=== PATIENT | male | born 1995 | race African-American/Black ===

== ENCOUNTER 2024-09-09 13:26 | Emergency (ER) | payer MEDICAID, SELFPAY ==
--- NOTE | 2024-09-09 13:49 | PC.NURSE ---
Pt called mult times for triage, states he needs more time he is currently on the phone talking.
[2024-09-09 14:00] VITALS: BP 144/66; PULSE 88; RESP 19; TEMP 37.1; O2SAT 100
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
--- OUTSIDE RECORDS SUMMARY | 2024-09-09 15:51 | XMS_ITS | Patient Health Summary ---
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 The craniocervical junction is normal. The intervertebral discs appear normal. No central canal stenosis is seen. The facets appear normal. The uncovertebral joints appear normal. No neural foraminal stenosis isseen. No soft tissue abnormality is identified. Thoracic spine: Mild dextrocurvature of the thoracic spine. The alignment is otherwise maintained. Vertebral bodies are normal in height without evidence ofacute fracture. The intervertebral discs appear normal. No central canalstenosis is seen. The facets appear normal. No neural foraminal stenosis isseen. No soft tissue abnormality is identified. Lumbar spine: Shallow levocurvature of the lumbar spine. Minimal retrolisthesis of L5on S1. The alignment is otherwise maintained. Vertebral bodies are normalin height without evidence of acute fracture. There is diffuse disc bulgeat multiple levels. No significant central canal stenosis is seen. Thereare varying degrees of mild facet osteoarthritis. Mild neural foraminal stenosis is seen. No soft tissue abnormality is identified. IMPRESSION: 1.No acute intracranial hemorrhage, midline shift, or significant mass effect. 2.Acute moderately displaced right and mildly displaced left nasal bone fracture. 3.Acute fracture of the bony nasal septum with leftward deviation of the bony nasal septum. 4.Slight soft tissue swelling over the nose and left periorbital region. 5.No evidence of acute fracture in the cervical, thoracic, or lumbarspine. 6.2. The concurrent, dedicated body report for findings in the chest, abdomen, and pelvis. > Dictated by Tyler Ortega DO ([employer]el Clerk), 09/04/2024 7:09 PM. ICyndee MD have personally reviewed and interpretedthis examination/study. > Interpreting Provider: Cyndee Cota MD on 09/04/2024 9:09 PM Kimberly Dash MD CT ORDERABLES * CT CERVICAL SPINE WO CONTRAST - C-Spine Trauma, Spine fracture (09/04/2024 6:56 PM [facility]) Anatomical Region Laterality Modality Spine Computed Tomogra phy 09/04/2024 7:08 PM [facility] Impressions 09/04/2024 9:09 PM [facility] IMPRESSION: 1.No acute intracranial hemorrhage, midline shift, or significant mass effect. 2.Acute moderately displaced right and mildly displaced left nasal bone fracture. 3.Acute fracture of the bony nasal septum with leftward deviation of the bony nasal septum. 4.Slight soft tissue swelling over the nose and left periorbital region. 5.No evidence of acute fracture in the cervical, thoracic, or lumbar spine. 6.2. The concurrent, dedicated body report for findings in the chest, abdomen, and pelvis. > Dictated by Tyler Ortega DO ([employer]el Clerk), 09/04/2024 7:09 PM. ICyndee MD have personally reviewed and interpreted this examination/study. > Interpreting Provider: Cyndee Cota MD on 09/04/2024 9:09 PM Narrative 09/04/2024 9:09 PM [facility] PROCEDURE: CT HEAD WO CONTRAST, CT THORACIC SPINE WO CONTRAST, CT LUMBAR SPINE WO CONTRAST, CT FACIAL BONES WO CONTRAST, CT CERVICAL SPINE WO CONTRAST, DATE/TIME OF EXAM: 09/04/2024 6:57 PM, LOCATION [facility] INDICATION: Trauma EXAMINATION: 1. Computed tomography (CT) of the head without contrast 2. CT of the maxillofacial bones, orbits, and paranasal sinuses without contrast 3. CT of the cervical spine without contrast 4. CT of the thoracic spine without contrast 5. CT of the lumbar spine without contrast TECHNIQUE: CT of the head, cervical spine, and maxillofacial bones, orbits, and paranasal sinuses was performed without contrast according to standard protocol. Reformatted axial, sagittal, and coronal images of the thoracic and lumbar spine were obtained by the technologist from a concurrently performed body CT and sent to the workstation for review. CT dose reduction technique was used, including Automated Exposure Control. COMPARISON: No prior study is available for comparison at the time of this dictation. FINDINGS: Head: No acute intra- or extra-axial fluid collections are identified. The ventricles are of normal size, shape, and morphology. The basilar cisterns are patent. No mass effect or midline shift is seen. The ball-white matter differentiation is normal. No acute calvarial fracture is identified. Maxillofacial: Acute moderately displaced right and mildly displaced left nasal bone fracture. There is overlying soft tissue swelling. Acute fracture of the bony nasal septum with leftward deviation of the bony nasal septum. The orbits appear normal. Nasal polyp versus mucous retention cysts in the left maxillary sinus. The paranasal sinuses are otherwise clear. The hard palate, mandible, and temporomandibular joints appear normal. 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 The mastoid air cells are clear. Slight soft tissue swelling over the left periorbital region. Cervical spine: There is slight straightening of the normal cervical lordotic curvature. Vertebral bodies are normal in height without evidence of acute fracture. The craniocervical junction is normal. The intervertebral discs appear normal. No central canal stenosis is seen. The facets appear normal. The uncovertebral joints appear normal. No neural foraminal stenosis is seen. No soft tissue abnormality is identified. Thoracic spine: Mild dextrocurvature of the thoracic spine. The alignment is otherwise maintained. Vertebral bodies are normal in height without evidence of acute fracture. The intervertebral discs appear normal. No central canal stenosis is seen. The facets appear normal. No neural foraminal stenosis is seen. No soft tissue abnormality is identified. Lumbar spine: Shallow levocurvature of the lumbar spine. Minimal retrolisthesis of L5 on S1. The alignment is otherwise maintained. Vertebral bodies are normal in height without evidence of acute fracture. There is diffuse disc bulge at multiple levels. No significant central canal stenosis is seen. There are varying degrees of mild facet osteoarthritis. Mild neural foraminal stenosis is seen. No soft tissue abnormality is identified. Procedure Note Cyndee Cota MD - 09/04/2024 PROCEDURE: CT HEAD WO CONTRAST, CT THORACIC SPINE WO CONTRAST, CTLUMBAR SPINE WO CONTRAST, CT FACIAL BONES WO CONTRAST, CT CERVICAL SPINE WO CONTRAST, DATE/TIME OF EXAM: 09/04/2024 6:57 PM, LOCATION [facility] INDICATION: Trauma EXAMINATION: 1. Computed tomography (CT) of the head without contrast 2. CT of the maxillofacial bones, orbits, and paranasal sinuses without contrast 3. CT of the cervical spine without contrast 4. CT of the thoracic spine without contrast 5. CT of the lumbar spine without contrast TECHNIQUE: CT of the head, cervical spine, and maxillofacial bones,orbits, and paranasal sinuses was performed without contrast according tostandard protocol. Reformatted axial, sagittal, and coronal images of thethoracic and lumbar spine were obtained by the technologist from a concurrently performed body CT and sent to the workstation for review. CT dosereduction technique was used, including Automated Exposure Control. COMPARISON: No prior study is available for comparison at the time ofthis dictation. FINDINGS: Head: No acute intra- or extra-axial fluid collections are identified. The ventricles are of normal size, shape, and morphology. The basilarcisterns are patent. No mass effect or midline shift is seen. The ball-whitematter differentiation is normal. No acute calvarial fracture is identified. Maxillofacial: Acute moderately displaced right and mildly displaced left nasal bone fracture. There is overlying soft tissue swelling. Acute fracture of the bony nasal septum with leftward deviation of the bony nasal septum. The orbits appear normal. Nasal polyp versus mucous retention cysts in theleft maxillary sinus. The paranasal sinuses are otherwise clear. 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 The mastoid air cells are clear. Slight soft tissueswelling over the left periorbital region. Cervical spine: There is slight straightening of the normal cervical lordotic curvature. Vertebral bodies are normal in height without evidence of acutefracture. The craniocervical junction is normal. The intervertebral discs appear normal. No central canal stenosis is seen. The facets appear normal. The uncovertebral joints appear normal. No neural foraminal stenosis isseen. No soft tissue abnormality is identified. Thoracic spine: Mild dextrocurvature of the thoracic spine. The alignment is otherwise maintained. Vertebral bodies are normal in height without evidence ofacute fracture. The intervertebral discs appear normal. No central canalstenosis is seen. The facets appear normal. No neural foraminal stenosis isseen. No soft tissue abnormality is identified. Lumbar spine: Shallow levocurvature of the lumbar spine. Minimal retrolisthesis of L5on S1. The alignment is otherwise maintained. Vertebral bodies are normalin height without evidence of acute fracture. There is diffuse disc bulgeat multiple levels. No significant central canal stenosis is seen. Thereare varying degrees of mild facet osteoarthritis. Mild neural foraminal stenosis is seen. No soft tissue abnormality is identified. IMPRESSION: 1.No acute intracranial hemorrhage, midline shift, or significant mass effect. 2.Acute moderately displaced right and mildly displaced left nasal bone fracture. 3.Acute fracture of the bony nasal septum with leftward deviation of the bony nasal septum. 4.Slight soft tissue swelling over the nose and left periorbital region. 5.No evidence of acute fracture in the cervical, thoracic, or lumbarspine. 6.2. The concurrent, dedicated body report for findings in the chest, abdomen, and pelvis. > Dictated by Tyler Ortega DO ([employer]el Clerk), 09/04/2024 7:09 PM. Cyndee Arriola MD have personally reviewed and interpretedthis examination/study. > Interpreting Provider: Cyndee Cota MD on 09/04/2024 9:09 PM Kimberly Dash MD CT ORDERABLES * CT FACIAL BONES WO CONTRAST - Facial trauma, fx suspected, blunt (09/04/2024 6:56 PM [facility]) Anatomical Region Laterality Modality Head Computed Tomogra phy 09/04/2024 7:08 PM [facility] Impressions 09/04/2024 9:09 PM [facility] IMPRESSION: 1.No acute intracranial hemorrhage, midline shift, or significant mass effect. 2.Acute moderately displaced right and mildly displaced left nasal bone fracture. 3.Acute fracture of the bony nasal septum with leftward deviation of the bony nasal septum. 4.Slight soft tissue swelling over the nose and left periorbital region. 5.No evidence of acute fracture in the cervical, thoracic, or lumbar spine. 6.2. The concurrent, dedicated body report for findings in the chest, abdomen, and pelvis. > Dictated by Tyler Ortega DO ([employer]el Clerk), 09/04/2024 7:09 PM. Cyndee Arriola MD have personally reviewed and interpreted this examination/study. > Interpreting Provider: Cyndee Cota MD on 09/04/2024 9:09 PM Narrative 09/04/2024 9:09 PM [facility] PROCEDURE: CT HEAD WO CONTRAST, CT THORACIC SPINE WO CONTRAST, CT LUMBAR SPINE WO CONTRAST, CT FACIAL BONES WO CONTRAST, CT CERVICAL SPINE WO CONTRAST, DATE/TIME OF EXAM: 09/04/2024 6:57 PM, LOCATION [facility] INDICATION: Trauma EXAMINATION: 1. Computed tomography (CT) of the head without contrast 2. CT of the maxillofacial bones, orbits, and paranasal sinuses without contrast 3. CT of the cervical spine without contrast 4. CT of the thoracic spine without contrast 5. CT of the lumbar spine without contrast TECHNIQUE: CT of the head, cervical spine, and maxillofacial bones, orbits, and paranasal sinuses was performed without contrast according to standard protocol. Reformatted axial, sagittal, and coronal images of the thoracic and lumbar spine were obtained by the technologist from a concurrently performed body CT and sent to the workstation for review. CT dose reduction technique was used, including Automated Exposure Control. COMPARISON: No prior study is available for comparison at the time of this dictation. FINDINGS: Head: No acute intra- or extra-axial fluid collections are identified. The ventricles are of normal size, shape, and morphology. The basilar cisterns are patent. No mass effect or midline shift is seen. The ball-white matter differentiation is normal. No acute calvarial fracture is identified. Maxillofacial: Acute moderately displaced right and mildly displaced left nasal bone fracture. There is overlying soft tissue swelling. Acute fracture of the bony nasal septum with leftward deviation of the bony nasal septum. The orbits appear normal. Nasal polyp versus mucous retention cysts in the left maxillary sinus. The paranasal sinuses are otherwise clear. The hard palate, mandible, and temporomandibular joints appear normal. 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 The mastoid air cells are clear. Slight soft tissue swelling over the left periorbital region. Cervical spine: There is slight straightening of the normal cervical lordotic curvature. Vertebral bodies are normal in height without evidence of acute fracture. The craniocervical junction is normal. The intervertebral discs appear normal. No central canal stenosis is seen. The facets appear normal. The uncovertebral joints appear normal. No neural foraminal stenosis is seen. No soft tissue abnormality is identified. Thoracic spine: Mild dextrocurvature of the thoracic spine. The alignment is otherwise maintained. Vertebral bodies are normal in height without evidence of acute fracture. The intervertebral discs appear normal. No central canal stenosis is seen. The facets appear normal. No neural foraminal stenosis is seen. No soft tissue abnormality is identified. Lumbar spine: Shallow levocurvature of the lumbar spine. Minimal retrolisthesis of L5 on S1. The alignment is otherwise maintained. Vertebral bodies are normal in height without evidence of acute fracture. There is diffuse disc bulge at multiple levels. No significant central canal stenosis is seen. There are varying degrees of mild facet osteoarthritis. Mild neural foraminal stenosis is seen. No soft tissue abnormality is identified. Procedure Note Cyndee Cota MD - 09/04/2024 PROCEDURE: CT HEAD WO CONTRAST, CT THORACIC SPINE WO CONTRAST, CTLUMBAR SPINE WO CONTRAST, CT FACIAL BONES WO CONTRAST, CT CERVICAL SPINE WO CONTRAST, DATE/TIME OF EXAM: 09/04/2024 6:57 PM, LOCATION [facility] INDICATION: Trauma EXAMINATION: 1. Computed tomography (CT) of the head without contrast 2. CT of the maxillofacial bones, orbits, and paranasal sinuses without contrast 3. CT of the cervical spine without contrast 4. CT of the thoracic spine without contrast 5. CT of the lumbar spine without contrast TECHNIQUE: CT of the head, cervical spine, and maxillofacial bones,orbits, and paranasal sinuses was performed without contrast according tostandard protocol. Reformatted axial, sagittal, and coronal images of thethoracic and lumbar spine were obtained by the technologist from a concurrently performed body CT and sent to the workstation for review. CT dosereduction technique was used, including Automated Exposure Control. COMPARISON: No prior study is available for comparison at the time ofthis dictation. FINDINGS: Head: No acute intra- or extra-axial fluid collections are identified. The ventricles are of normal size, shape, and morphology. The basilarcisterns are patent. No mass effect or midline shift is seen. The ball-whitematter differentiation is normal. No acute calvarial fracture is identified. Maxillofacial: Acute moderately displaced right and mildly displaced left nasal bone fracture. There is overlying soft tissue swelling. Acute fracture of the bony nasal septum with leftward deviation of the bony nasal septum. The orbits appear normal. Nasal polyp versus mucous retention cysts in theleft maxillary sinus. The paranasal sinuses are otherwise clear. 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 The mastoid air cells are clear. Slight soft tissueswelling over the left periorbital region. Cervical spine: There is slight straightening of the normal cervical lordotic curvature. Vertebral bodies are normal in height without evidence of acutefracture. The craniocervical junction is normal. The intervertebral discs appear normal. No central canal stenosis is seen. The facets appear normal. The uncovertebral joints appear normal. No neural foraminal stenosis isseen. No soft tissue abnormality is identified. Thoracic spine: Mild dextrocurvature of the thoracic spine. The alignment is otherwise maintained. Vertebral bodies are normal in height without evidence ofacute fracture. The intervertebral discs appear normal. No central canalstenosis is seen. The facets appear normal. No neural foraminal stenosis isseen. No soft tissue abnormality is identified. Lumbar spine: Shallow levocurvature of the lumbar spine. Minimal retrolisthesis of L5on S1. The alignment is otherwise maintained. Vertebral bodies are normalin height without evidence of acute fracture. There is diffuse disc bulgeat multiple levels. No significant central canal stenosis is seen. Thereare varying degrees of mild facet osteoarthritis. Mild neural foraminal stenosis is seen. No soft tissue abnormality is identified. IMPRESSION: 1.No acute intracranial hemorrhage, midline shift, or significant mass effect. 2.Acute moderately displaced right and mildly displaced left nasal bone fracture. 3.Acute fracture of the bony nasal septum with leftward deviation of the bony nasal septum. 4.Slight soft tissue swelling over the nose and left periorbital region. 5.No evidence of acute fracture in the cervical, thoracic, or lumbarspine. 6.2. The concurrent, dedicated body report for findings in the chest, abdomen, and pelvis. > Dictated by Tyler Ortega DO ([employer]el Clerk), 09/04/2024 7:09 PM. ICyndee MD have personally reviewed and interpretedthis examination/study. > Interpreting Provider: Cyndee Cota MD on 09/04/2024 9:09 PM Kimberly Dash MD CT ORDERABLES * CT HEAD WO CONTRAST - Head Trauma, CSF leak, mental status changes (09/04/2024 6:56 PM [employer]) Anatomical Region Laterality Modality Head Computed Tomogra phy 09/04/2024 7:08 PM [facility] [employer] Impressions 09/04/2024 9:09 PM [employer] [employer] IMPRESSION: 1.No acute intracranial hemorrhage, midline shift, or significant mass effect. 2.Acute moderately displaced right and mildly displaced left nasal bone fracture. 3.Acute fracture of the bony nasal septum with leftward deviation of the bony nasal septum. 4.Slight soft tissue swelling over the nose and left periorbital region. 5.No evidence of acute fracture in the cervical, thoracic, or lumbar spine. 6.2. The concurrent, dedicated body report for findings in the chest, abdomen, and pelvis. > Dictated by Tyler Ortega DO (Creel Clerk), 09/04/2024 7:09 PM. ICyndee MD have personally reviewed and interpreted this examination/study. > Interpreting Provider: Cyndee Cota MD on 09/04/2024 9:09 PM Narrative 09/04/2024 9:09 PM [facility] [employer] PROCEDURE: CT HEAD WO CONTRAST, CT THORACIC SPINE WO CONTRAST, CT LUMBAR SPINE WO CONTRAST, CT FACIAL BONES WO CONTRAST, CT CERVICAL SPINE WO CONTRAST, DATE/TIME OF EXAM: 09/04/2024 6:57 PM, LOCATION [facility] INDICATION: Trauma EXAMINATION: 1. Computed tomography (CT) of the head without contrast 2. CT of the maxillofacial bones, orbits, and paranasal sinuses without contrast 3. CT of the cervical spine without contrast 4. CT of the thoracic spine without contrast 5. CT of the lumbar spine without contrast TECHNIQUE: CT of the head, cervical spine, and maxillofacial bones, orbits, and paranasal sinuses was performed without contrast according to standard protocol. Reformatted axial, sagittal, and coronal images of the thoracic and lumbar spine were obtained by the technologist from a concurrently performed body CT and sent to the workstation for review. CT dose reduction technique was used, including Automated Exposure Control. COMPARISON: No prior study is available for comparison at the time of this dictation. FINDINGS: Head: No acute intra- or extra-axial fluid collections are identified. The ventricles are of normal size, shape, and morphology. The basilar cisterns are patent. No mass effect or midline shift is seen. The ball-white matter differentiation is normal. No acute calvarial fracture is identified. Maxillofacial: Acute moderately displaced right and mildly displaced left nasal bone fracture. There is overlying soft tissue swelling. Acute fracture of the bony nasal septum with leftward deviation of the bony nasal septum. The orbits appear normal. Nasal polyp versus mucous retention cysts in the left maxillary sinus. The paranasal sinuses are otherwise clear. The hard palate, mandible, and temporomandibular joints appear normal. 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 The mastoid air cells are clear. Slight soft tissue swelling over the left periorbital region. Cervical spine: There is slight straightening of the normal cervical lordotic curvature. Vertebral bodies are normal in height without evidence of acute fracture. The craniocervical junction is normal. The intervertebral discs appear normal. No central canal stenosis is seen. The facets appear normal. The uncovertebral joints appear normal. No neural foraminal stenosis is seen. No soft tissue abnormality is identified. Thoracic spine: Mild dextrocurvature of the thoracic spine. The alignment is otherwise maintained. Vertebral bodies are normal in height without evidence of acute fracture. The intervertebral discs appear normal. No central canal stenosis is seen. The facets appear normal. No neural foraminal stenosis is seen. No soft tissue abnormality is identified. Lumbar spine: Shallow levocurvature of the lumbar spine. Minimal retrolisthesis of L5 on S1. The alignment is otherwise maintained. Vertebral bodies are normal in height without evidence of acute fracture. There is diffuse disc bulge at multiple levels. No significant central canal stenosis is seen. There are varying degrees of mild facet osteoarthritis. Mild neural foraminal stenosis is seen. No soft tissue abnormality is identified. Procedure Note Cyndee Cota MD - 09/04/2024 PROCEDURE: CT HEAD WO CONTRAST, CT THORACIC SPINE WO CONTRAST, CTLUMBAR SPINE WO CONTRAST, CT FACIAL BONES WO CONTRAST, CT CERVICAL SPINE WO CONTRAST, DATE/TIME OF EXAM: 09/04/2024 6:57 PM, LOCATION [facility] INDICATION: Trauma EXAMINATION: 1. Computed tomography (CT) of the head without contrast 2. CT of the maxillofacial bones, orbits, and paranasal sinuses without contrast 3. CT of the cervical spine without contrast 4. CT of the thoracic spine without contrast 5. CT of the lumbar spine without contrast TECHNIQUE: CT of the head, cervical spine, and maxillofacial bones,orbits, and paranasal sinuses was performed without contrast according tostandard protocol. Reformatted axial, sagittal, and coronal images of thethoracic and lumbar spine were obtained by the technologist from a concurrently performed body CT and sent to the workstation for review. CT dosereduction technique was used, including Automated Exposure Control. COMPARISON: No prior study is available for comparison at the time ofthis dictation. FINDINGS: Head: No acute intra- or extra-axial fluid collections are identified. The ventricles are of normal size, shape, and morphology. The basilarcisterns are patent. No mass effect or midline shift is seen. The ball-whitematter differentiation is normal. No acute calvarial fracture is identified. Maxillofacial: Acute moderately displaced right and mildly displaced left nasal bone fracture. There is overlying soft tissue swelling. Acute fracture of the bony nasal septum with leftward deviation of the bony nasal septum. The orbits appear normal. Nasal polyp versus mucous retention cysts in theleft maxillary sinus. The paranasal sinuses are otherwise clear. 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
--- OUTSIDE RECORDS SUMMARY | 2024-09-09 15:51 | XMS_ITS | Continuity of Care Document ---
Author Organization [facility] Address [address] [place] [phone] Phone Care Team Providers Care Harmonica Maker Name Role Phone Maria G Cooley OD Unavailable Unavailable Allergies, Adverse Reactions, Alerts Substance Reaction Status Criticality No Known Allergies Active No Inform ation Medications Medication Instructions Dosage Effective Dates (start - stop) Status Comments fluorometholone 0.1 % eye drops,suspension instill 1 drop by ophthalmic route 4 times every day into both eyes - Active Procedures Procedure Date EYE EXAM, NEW PATIENT COMP Advance Directives Directive Yes / No Effective Date File Name No Information Encounters Encounter Description Practice Location Reason(s) For Visit Diagnoses Date Provider Providers Copied on Encounter [facility], [address] [place] [address], [id number], [place] tel:[phone] Urgent Care Red eyes (chief complaint) Viral conjunctivitis Yasir Maria G. [address] [place] [address], [id number] , [place]. tel:[phone] Family History Family Member Type Diagnosis Age At Onset Father Problem (finding) No history of Diabetes mellitus Mother Problem (finding) No history of Diabetes mellitus Mother Problem (finding) No history of Glaucoma Father Problem (finding) No history of Glaucoma Payers Payer name Insurance type Covered constitution party ID Authoriza tion(s) No Information Social History Type Description Quantity Date Captured Comments Alcohol Use Details Unknown Caffeine Use Details Unknown Tobacco Use Status Smoking Status Current every day smoker Non-Smoking Tobacco Use Details : No Details Available : No Details Available Sex Male Chief Complaint And Reason For Visit From encounter dated '03/31/2015 12:00'. Red eyes (chief complaint). Description: The 19 year 4 month old male presents with red eyes OS>OD. Red eye began in right eye 3 wks ago. Symptoms are resolving. Red eye began in left eye 3 days ago. Vision is stll blurry in right eye. Light sensitivity, irritation in left eye. Tearing OS>OD. Patient reports having a cold 3-4 wks ago. Pt reports using vision in bid to tid OU. Pt reports using an unknown ointment before bed for 1-2 wks. Reason For Referral Reason For Referral No Information History Of Present Illness Encounter Date Complaint History Of Prese nt Illness Red eyes The 19 year 4 mo nth old male presents with red eyes OS>OD. Red eye began in right eye 3 wks ago. Symptoms are resolving. Red eye began in left eye 3 days ago. Vision is stll blurry in right eye. Light sensitivity, irritation in left eye. Tearing OS>OD. Patient reports having a cold 3-4 wks ago. Pt reports using vision in bid to tid OU. Pt reports using an unknown ointment before bed for 1-2 wks. Functional Status Date Functional Assessmen t No Information Instructions Date Instruction Additional Infor jael Impression/Plan - St art FML qid OU and AT q2hrs OU. F/U with DFE in 1 wk with Ittner/Labrum. Sample of preservative free Refresh was given to patient. Pt was educated about the condition and was informed that although FML will relieve symptoms, it is not a cure and he may be contagious for 10-14 days. He was educated to use proper hygiene including frequent hand washing. Pt advised to RTC immediately if symptoms worsen. Patient was given business card with 24 hour urgent care number and instructed to call if any change in sns/sxs (increase in pain, redness, photophobia, discharge, decrease in vision) Related to Viral conjunctivitis Follow up - Return in 1 week Rel ated to Other viral conjunctivitis Assessments Type Assessment Date assessment Viral conjunctivitis impression Viral conjunctivitis : 077.99 OS>OD -resolving in right eye, onset was ~03/10/15 -onset in left eye was ~03/28/15 Patient Care Teams Name Effective Dates (start - stop) Status Members No Information
--- OUTSIDE RECORDS SUMMARY | 2024-09-09 15:51 | XMS_ITS | Referral Summary ---
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 Screen Urine Negative Negative : < 200 ng/mL 09/04/2024 5:13 PM [facility] Benzodiazepine Screen Urine Negative Negative : < 200 ng/mL 09/04/2024 5:13 PM [facility] Opiates Urine Negative Negative : < 300 ng/mL 09/04/2024 5:13 PM [facility] Cocaine Metabolites Urine Negative Negative : < 300 ng/mL 09/04/2024 5:13 PM [facility] Phencyclidine Screen Urine Negative Negative : < 25 ng/ml 09/04/2024 5:13 PM [facility] Cannabinoids Screen Urine Positive(A) Negative : <50 ng/mL 09/04/2024 5:13 PM [facility] Comment:Positive urine canna binoids (THC) screening results should be confirmed by another generally accepted non-immunological method such as gas chromatography or mass spectrometry. Methadone Screen Urine Negative Negative : < 300 ng/mL 09/04/2024 5:13 PM [facility] Fentanyl Screen Urine Negative Negative : <1.5 ng/mL 09/04/2024 5:13 PM [facility] Urine URINE / Unknown Collection / Unknown 09/04/2024 4:49 PM ENTREPRENEURIAL FINANCE PROFESSOR 09/04/2024 4:52 PM [facility] - 09/04/2024 5:13 PM ENTREPRENEURIAL FINANCE PROFESSOR The Urine Toxicology Screening Panel does not screen for Propoxyphene, Meprobamate, Carisoprodol, Trazodone, [id number] medications and/or volatiles (Acetone, Isopropanol, Methanol or Ethylene Glycol). Ethanol, Salicylate, Acetaminophen, Tricyclic Antidepressants and several therapeutic drugs may be individually assayed in serum or plasma specimen. Toxicology testing by the [facility] is an aid to medical diagnosis and treatment of patients. No documented chain of custody was maintained. Results are intended to be used for clinical purposes only. Kimberly Dash MD LAB - URINE CHEMISTR Y ORDERABLES Performing Organization Address City/[facility]/ZIP Co de Phone Number [facility] [address] [place] [address], [facility] [phone] * PT-INR [facility] (09/04/2024 4:48 PM ENTREPRENEURIAL FINANCE PROFESSOR) Pathologist [facility] PT 14.5 12.1 - 14.8 Seconds 09/04/2024 5:21 PM ENTREPRENEURIAL FINANCE PROFESSOR [facility] INR 1.2 See Comment 09/04/2024 5:21 PM ENTREPRENEURIAL FINANCE PROFESSOR [facility] Comment:The suggested therap eutic range for standard coumadin (warfarin) therapy is an INR of 2.0-3.0. For high-risk patients (Mechanical Mitral Valve Prosthesis, etc.), the suggested prophylactic therapeutic range is an INR of 2.5-3.5. Blood BLOOD SPECIMEN / Unknown Venipuncture / Unknown 09/04/2024 4:48 PM ENTREPRENEURIAL FINANCE PROFESSOR 09/04/2024 4:52 PM ENTREPRENEURIAL FINANCE PROFESSOR Kimberly Dash MD LAB - COAGULATION OR DERABLES Performing Organization Address [facility]/ZIP Co de Phone Number [phone] [place] [address], [facility] [phone] * TYPE + SCREEN PANEL (09/04/2024 4:48 PM ENTREPRENEURIAL FINANCE PROFESSOR) Antibody Screen NEG 5:51 PM ENTREPRENEURIAL FINANCE PROFESSOR [facility] BLOOD BANK LAB ABO Rh A POS 09/04/2024 5:51 PM ENTREPRENEURIAL FINANCE PROFESSOR [facility] BLOOD BANK LAB Blood Bank BLOOD SPECIMEN / Unknown Venipuncture / Unknown 09/04/2024 4:48 PM ENTREPRENEURIAL FINANCE PROFESSOR 09/04/2024 5:14 PM ENTREPRENEURIAL FINANCE PROFESSOR Kimberly Dash MD LAB - BLOOD BANK ORD ERABLES [facility] BLOOD BANK LAB [address] [place] [address], [facility] [phone] * (ABNORMAL) CBC W AUTO DIFFERENTIAL (09/04/2024 4:48 PM ENTREPRENEURIAL FINANCE PROFESSOR) WBC 10.0 4.0 - 10.7 x10E9/L 09/04/2024 5:18 PM [facility] RBC Count 3.78(L) 4.30 - 5.80 x10E12/L 09/04/2024 5:18 PM [facility] Hemoglobin 7.4(L) 13.3 - 17.5 g/dL 09/04/2024 5:18 PM [facility] Hematocrit 25.5(L) 38.7 - 51.1 % 09/04/2024 5:18 PM [facility] MCV 67.5(L) 80.0 - 98.0 fL 09/04/2024 5:18 PM [facility] MCH 19.6(L) 26.7 - 33.6 pg 09/04/2024 5:18 PM [facility] MCHC 29.0(L) 31.7 - 36.3 g/dL 09/04/2024 5:18 PM [facility] RDW-CV 16.7(H) 11.3 - 14.8 % 09/04/2024 5:18 PM [facility] Platelet Count 610(H) 150 - 420 x10E9/L 09/04/2024 5:18 PM [facility] MPV 9.5 7.8 - 11.4 fL 09/04/2024 5:18 PM [facility] Neutrophil % 71.4 41.0 - 74.0 % 09/04/2024 5:18 PM [facility] Lymphocyte % 19.4 17.0 - 47.0 % 09/04/2024 5:18 PM [facility] Monocyte % 6.1 3.0 - 11.0 % 09/04/2024 5:18 PM ENTREPRENEURIAL FINANCE PROFESSOR [facility] Eosinophil % 1.5 0.0 - 7.0 % 09/04/2024 5:18 PM [facility] Basophil % 1.2 0.0 - 1.6 % 09/04/2024 5:18 PM [facility] Immature Granulocytes % 0.4 0.0 - 1.0 % 09/04/2024 5:18 PM [facility] Neutrophil Absolute 7.12 1.60 - 7.50 x10E9/L 09/04/2024 5:18 PM [facility] Lymphocyte Absolute 1.94 1.00 - 4.40 x10E9/L 09/04/2024 5:18 PM [facility] Monocyte Absolute 0.61 0.15 - 1.00 x10E9/L 09/04/2024 5:18 PM [facility] Eosinophil Absolute 0.15 0.00 - 0.60 x10E9/L 09/04/2024 5:18 PM [facility] Basophil Absolute 0.12 0.00 - 0.13 x10E9/L 09/04/2024 5:18 PM [facility] Blood BLOOD SPECIMEN / Unknown Venipuncture / Unknown 09/04/2024 4:48 PM ENTREPRENEURIAL FINANCE PROFESSOR 09/04/2024 4:57 PM [facility] Kimberly Dash MD LAB - HEMATOLOGY ORD ERABLES [facility] [address] [place] [address], [facility] [phone] * (ABNORMAL) COMPREHENSIVE METABOLIC PANEL (09/04/2024 4:48 PM ENTREPRENEURIAL FINANCE PROFESSOR) BUN 14 7 - 26 mg/dL 09/04/2024 5:26 PM [facility] Creatinine 0.80 0.71 - 1.16 mg/dL 09/04/2024 5:26 PM [facility] Sodium 140 136 - 145 mmol/L 09/04/2024 5:26 PM [facility] Potassium 3.5 3.5 - 4.5 mmol/L 09/04/2024 5:26 PM [facility] Chloride 110(H) 98 - 107 mmol/L 09/04/2024 5:26 PM [facility] CO2 23 22 - 29 mmol/L 09/04/2024 5:26 PM [facility] Glucose 85 70 - 99 mg/dL 09/04/2024 5:26 PM [facility] Calcium 9.2 8.4 - 10.2 mg/dL 09/04/2024 5:26 PM [facility] Protein Total 7.5 6.0 - 8.3 g/dL 09/04/2024 5:26 PM [facility] Albumin 3.9 3.4 - 5.0 g/dL 09/04/2024 5:26 PM [facility] Bilirubin Total 0.3 0.2 - 1.2 mg/dL 09/04/2024 5:26 PM [facility] Alkaline Phosphatase 51 40 - 150 U/L 09/04/2024 5:26 PM [facility] ALT 16 5 - 55 U/L 09/04/2024 5:26 PM [facility] AST 34 5 - 34 U/L 09/04/2024 5:26 PM [facility] Anion Gap 7 6 - 16 09/04/2024 5:26 PM [facility] BUN/Creatinine Ratio 18 7 - 23 09/04/2024 5:26 PM [facility] Osmolality Calculated 290 275 - 295 mOsm/kg 09/04/2024 5:26 PM [facility] Albumin/Globulin Ratio 1.1 1.1 - 2.3 09/04/2024 5:26 PM [facility] eGFR by CKD-EPI >90 >=90 mL/min/1.7 3 m2 09/04/2024 5:26 PM [facility] Blood BLOOD SPECIMEN / Unknown Venipuncture / Unknown 09/04/2024 4:48 PM ENTREPRENEURIAL FINANCE PROFESSOR 09/04/2024 4:57 PM [facility] Kimberly Dash MD LAB - CHEMISTRY ORDE DANN [facility] Organization Address City/State/ZIP Co de Phone Number [facility] [address] [place] [address], [facility] [phone] * LIPASE BLOOD (09/04/2024 4:48 PM ENTREPRENEURIAL FINANCE PROFESSOR) Lipase 30 8 - 78 U/L 09/04/2024 5:26 PM [facility] Blood BLOOD SPECIMEN / Unknown Venipuncture / Unknown 09/04/2024 4:48 PM ENTREPRENEURIAL FINANCE PROFESSOR 09/04/2024 4:57 PM ENTREPRENEURIAL FINANCE PROFESSOR [facility] - 09/04/2024 5:26 PM ENTREPRENEURIAL FINANCE PROFESSOR Lipase results from the [employer] Alinity analyzer may not be comparable with other methodologies. Kimberly Dash MD LAB - CHEMISTRY JOHAN QUIGLEY Performing Organization Address [facility]/ZIP Co de Phone Number [address] [address], [facility] [phone] * ALCOHOL ETHYL BLOOD (09/04/2024 4:48 PM ENTREPRENEURIAL FINANCE PROFESSOR) Ethanol (mg/dL) <10 <10 mg/dL 5:26 PM [facility] Ethanol Calculated (g/dL) <0.010 <=0.010 g/dL 09/04/2024 5:26 PM [facility] Blood BLOOD SPECIMEN / Unknown Venipuncture / Unknown 09/04/2024 4:48 PM ENTREPRENEURIAL FINANCE PROFESSOR 09/04/2024 4:57 PM ENTREPRENEURIAL FINANCE PROFESSOR [facility] - 09/04/2024 5:26 PM ENTREPRENEURIAL FINANCE PROFESSOR Ethanol Interp <10: None Detected. Depression of PROBATION AGENT: >100 mg/dl Potentially Critical: >250 mg/dl Potentially [...] - CHEMISTRY JOHAN QUIGLEY Performing Organization Address City/[facility]/ZIP Co de Phone Number [facility] [address] [place] [phone], [place] [phone] from Last 3 Months Care Teams Insurance Account Executive Relationship Specialty Start Date End Date None, Physician PCP - General 09/04/24
--- OUTSIDE RECORDS SUMMARY | 2024-09-09 15:51 | XMS_ITS | Clinical Summary ---
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 Urine Negative Negative : < 300 ng/mL 09/04/2024 5:13 PM [facility] Phencyclidine Screen Urine Negative Negative : < 25 ng/ml 09/04/2024 5:13 PM [facility] Cannabinoids Screen Urine Positive(A) Negative : <50 ng/mL 09/04/2024 5:13 PM [facility] Comment:Positive urine canna binoids (THC) screening results should be confirmed by another generally accepted non-immunological method such as gas chromatography or mass spectrometry. Methadone Screen Urine Negative Negative : < 300 ng/mL 09/04/2024 5:13 PM [facility] Fentanyl Screen Urine Negative Negative : <1.5 ng/mL 09/04/2024 5:13 PM [facility] Urine URINE / Unknown Collection / Unknown 09/04/2024 4:49 PM [facility] 09/04/2024 4:52 PM [facility] - 09/04/2024 5:13 PM [facility] The Urine Toxicology Screening Panel does not screen for Propoxyphene, Meprobamate, Carisoprodol, Trazodone, ilmv-azc-nzefyys medications and/or volatiles (Acetone, Isopropanol, Methanol or Ethylene Glycol). Ethanol, Salicylate, Acetaminophen, Tricyclic Antidepressants and several therapeutic drugs may be individually assayed in serum or plasma specimen. Toxicology testing by the [facility] is an aid to medical diagnosis and treatment of patients. No documented chain of custody was maintained. Results are intended to be used for clinical purposes only. Kimberly Dash MD LAB - URINE CHEMISTR Y ORDERABLES Performing Organization Address City/State/[facility] Co de Phone Number [facility] [address] [place] [phone], [facility] [phone] * PT-INR [facility] (09/04/2024 4:48 PM [facility]) PT 14.5 12.1 - 14.8 Seconds 09/04/2024 5:21 PM [facility] INR 1.2 See Comment 09/04/2024 5:21 PM [facility] Comment:The suggested therap eutic range for standard coumadin (warfarin) therapy is an INR of 2.0-3.0. For high-risk patients (Mechanical Mitral Valve Prosthesis, etc.), the suggested prophylactic therapeutic range is an INR of 2.5-3.5. Blood BLOOD SPECIMEN / Unknown Venipuncture / Unknown 09/04/2024 4:48 PM PIPE STRESS ENGINEER 09/04/2024 4:52 PM PIPE STRESS ENGINEER Kimberly Dash MD LAB - COAGULATION OR DERABLES Performing Organization Address City/[facility] [address]/ZIP Co de Phone Number [facility] [address] [place] [phone], [facility] [phone] * TYPE + SCREEN PANEL (09/04/2024 4:48 PM PIPE STRESS ENGINEER) Pathologist [facility] Antibody Screen NEG 5:51 PM PIPE STRESS ENGINEER [facility] ABO Rh A POS 09/04/2024 5:51 PM PIPE STRESS ENGINEER [facility] Blood Bank BLOOD SPECIMEN / Unknown Venipuncture / Unknown 09/04/2024 4:48 PM PIPE STRESS ENGINEER 09/04/2024 5:14 PM PIPE STRESS ENGINEER Kimberly Dash MD LAB - BLOOD BANK ORD ERABLES Performing Organization Address City/[facility] [address]/ZIP Co de Phone Number [facility] [address] [place] [phone], [facility] [phone] * (ABNORMAL) CBC W AUTO DIFFERENTIAL (09/04/2024 4:48 PM PIPE STRESS ENGINEER) [facility] WBC 10.0 4.0 - 10.7 x10E9/L 09/04/2024 5:18 PM [facility] RBC Count 3.78(L) 4.30 - 5.80 x10E12/L 09/04/2024 5:18 PM [facility] Hemoglobin 7.4(L) 13.3 - 17.5 g/dL 09/04/2024 5:18 PM [facility] Hematocrit 25.5(L) 38.7 - 51.1 % 09/04/2024 5:18 PM [facility] MCV 67.5(L) 80.0 - 98.0 fL 09/04/2024 5:18 PM [facility] MCH 19.6(L) 26.7 - 33.6 pg 09/04/2024 5:18 PM [facility] MCHC 29.0(L) 31.7 - 36.3 g/dL 09/04/2024 5:18 PM [facility] RDW-CV 16.7(H) 11.3 - 14.8 % 09/04/2024 5:18 PM [facility] Platelet Count 610(H) 150 - 420 x10E9/L 09/04/2024 5:18 PM [facility] MPV 9.5 7.8 - 11.4 fL 09/04/2024 5:18 PM [facility] Neutrophil % 71.4 41.0 - 74.0 % 09/04/2024 5:18 PM [facility] Lymphocyte % 19.4 17.0 - 47.0 % 09/04/2024 5:18 PM [facility] Monocyte % 6.1 3.0 - 11.0 % 09/04/2024 5:18 PM [facility] Eosinophil % 1.5 0.0 - 7.0 % 09/04/2024 5:18 PM [facility] Basophil % 1.2 0.0 - 1.6 % 09/04/2024 5:18 PM [facility] Immature Granulocytes % 0.4 0.0 - 1.0 % 09/04/2024 5:18 PM [facility] Neutrophil Absolute 7.12 1.60 - 7.50 x10E9/L 09/04/2024 5:18 PM [facility] Lymphocyte Absolute 1.94 1.00 - 4.40 x10E9/L 09/04/2024 5:18 PM [facility] Monocyte Absolute 0.61 0.15 - 1.00 x10E9/L 09/04/2024 5:18 PM [facility] Eosinophil Absolute 0.15 0.00 - 0.60 x10E9/L 09/04/2024 5:18 PM [facility] Basophil Absolute 0.12 0.00 - 0.13 x10E9/L 09/04/2024 5:18 PM [facility] Blood BLOOD SPECIMEN / Unknown Venipuncture / Unknown 09/04/2024 4:48 PM PIPE STRESS ENGINEER 09/04/2024 4:57 PM PIPE STRESS ENGINEER Kimberly Dash MD LAB - HEMATOLOGY ORD ERABLES [facility] [address] [place] [address], [facility] [phone] * (ABNORMAL) COMPREHENSIVE METABOLIC PANEL (09/04/2024 4:48 PM PIPE STRESS ENGINEER) BUN 14 7 - 26 mg/dL 09/04/2024 5:26 PM [facility] Creatinine 0.80 0.71 - 1.16 mg/dL 09/04/2024 5:26 PM [facility] Sodium 140 136 - 145 mmol/L 09/04/2024 5:26 PM [facility] Potassium 3.5 3.5 - 4.5 mmol/L 09/04/2024 5:26 PM [facility] Chloride 110(H) 98 - 107 mmol/L 09/04/2024 5:26 PM [facility] CO2 23 22 - 29 mmol/L 09/04/2024 5:26 PM [facility] Glucose 85 70 - 99 mg/dL 09/04/2024 5:26 PM [facility] Calcium 9.2 8.4 - 10.2 mg/dL 09/04/2024 5:26 PM [facility] Protein Total 7.5 6.0 - 8.3 g/dL 09/04/2024 5:26 PM [facility] Albumin 3.9 3.4 - 5.0 g/dL 09/04/2024 5:26 PM [facility] Bilirubin Total 0.3 0.2 - 1.2 mg/dL 09/04/2024 5:26 PM [facility] Alkaline Phosphatase 51 40 - 150 U/L 09/04/2024 5:26 PM [facility] ALT 16 5 - 55 U/L 09/04/2024 5:26 PM [facility] AST 34 5 - 34 U/L 09/04/2024 5:26 PM [facility] Anion Gap 7 6 - 16 09/04/2024 5:26 PM [facility] BUN/Creatinine Ratio 18 7 - 23 09/04/2024 5:26 PM [facility] Osmolality Calculated 290 275 - 295 mOsm/kg 09/04/2024 5:26 PM [facility] Albumin/Globulin Ratio 1.1 1.1 - 2.3 09/04/2024 5:26 PM [facility] eGFR by CKD-EPI >90 >=90 mL/min/1.7 3 m2 09/04/2024 5:26 PM [facility] Blood BLOOD SPECIMEN / Unknown Venipuncture / Unknown 09/04/2024 4:48 PM PIPE STRESS ENGINEER 09/04/2024 4:57 PM PIPE STRESS ENGINEER Kimberly Dash MD LAB - CHEMISTRY JOHAN QUIGLEY Performing Organization Address City/[facility] [address]/ZIP Co de Phone Number [facility] [address] [place] [address], [place] [phone] * LIPASE BLOOD (09/04/2024 4:48 PM PIPE STRESS ENGINEER) Lipase 30 8 - 78 U/L 09/04/2024 5:26 PM [facility] Blood BLOOD SPECIMEN / Unknown Venipuncture / Unknown 09/04/2024 4:48 PM PIPE STRESS ENGINEER 09/04/2024 4:57 PM PIPE STRESS ENGINEER Narrative [facility] - 09/04/2024 5:26 PM PIPE STRESS ENGINEER Lipase results from the P[employer] Alinity analyzer may not be comparable with other methodologies. Kimberly Dash MD LAB - CHEMISTRY JOHAN QUIGLEY [facility] [address] [place] [address], [place] [phone] * ALCOHOL ETHYL BLOOD (09/04/2024 4:48 PM PIPE STRESS ENGINEER) Ethanol (mg/dL) <10 <10 mg/dL 5:26 PM [facility] Ethanol Calculated (g/dL) <0.010 <=0.010 g/dL 09/04/2024 5:26 PM [facility] Blood BLOOD SPECIMEN / Unknown Venipuncture / Unknown 09/04/2024 4:48 PM PIPE STRESS ENGINEER 09/04/2024 4:57 PM PIPE STRESS ENGINEER Narrative [facility] - 09/04/2024 5:26 PM PIPE STRESS ENGINEER Ethanol Interp <10: None Detected. Depression of [employer]: >100 mg/dl Potentially Critical: >250 mg/dl Potentially [...] Dash MD LAB - CHEMISTRY JOHAN QUIGLEY [facility] Organization Address City/State/ZIP Co de Phone Number [facility] [address] [place] [address], [facility] [phone] from Last 3 Months Care Teams Firesetter Relationship Specialty Start Date End Date None, Physician PCP - General 09/04/24
== END 2024-09-09 15:44 | disposition home or self-care (01) ==
PROVIDERS: Emergency Provider Physician Assistant
DX: S02.2XXD Fracture of nasal bones, subsequent encounter for fracture with routine healing (principal); V43.62XD Car passenger injured in collision with other type car in traffic accident, subsequent encounter
CPT/HCPCS: 99283